=== PATIENT | male | born 1960 | race Caucasian/White ===

== ENCOUNTER 2021-05-02 07:15 | Emergency (ER) | payer BC, MEDICAID ==
--- NOTE | 2021-05-02 07:40 | EDM.PDOC ---
ED HPI GENERAL MEDICAL PROBLEM - General Chief Complaint: General Stated Complaint: WOKE UP DIZZY Time Seen by Provider: 05/02/21 08:05 Source of Information: Reports: Patient, RN. Denies: Old Records History Limitations: Reports: No Limitations - History of Present Illness INITIAL COMMENTS - FREE TEXT/NARRATIVE: 60 yo male is here with his son for a couple of intermittent dizzy spells associated with nausea/vomiting. He seems to get more dizzy with movement. He had a mild spell yesterday, but it is worse today. Feels fine lying on the exam cart at the time of my exam. No diarrhea, melena, or hematochezia. Dr. Pinto is his doctor. Onset: Gradual Onset Date: 05/01/21 Duration: Intermittent Location: Reports: Head Quality: Reports: Other (no pain) Severity: Moderate (at the worst) Improves with: Reports: Immobilization Worsens with: Reports: Movement Context: Reports: Other (See HPI) Associated Symptoms: Reports: Diaphoresis, Nausea/Vomiting. 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: Other (see below) (none) - Related Data Allergies Allergy/AdvReac Type Severity Reaction Status Date / Time Penicillins Allergy Mild Other Verified 05/02/21 07:37 Home Meds: Home Meds Aspirin [Vazalore] 81 mg PO DAILY 05/02/21 [History] Insulin Aspart [NovoLOG] 20 unit SQ WITHMEALSANDBED 05/02/21 [History] Insulin Glarg,Human.Rec.Analog [Lantus Solostar] 100 units SQ DAILY 05/02/21 [History] Liraglutide [Victoza 3-Rick] 18 mg .XX DAILY 05/02/21 [History] Meclizine [Antivert] 25 mg PO Q6H PRN #40 tab.chew 05/02/21 [Rx] Simvastatin 40 mg PO DAILY 05/02/21 [History] lisinopriL [Lisinopril] 10 mg PO DAILY 05/02/21 [History] ED ROS GENERAL - Review of Systems Review Of Systems: See Below Constitutional: Reports: Diaphoresis (intermittent) HEENT: Reports: No Symptoms Respiratory: Reports: No Symptoms Cardiovascular: Reports: No Symptoms GI/Abdominal: Reports: Nausea, Vomiting. Denies: Diarrhea : Reports: No Symptoms Musculoskeletal: Reports: No Symptoms Skin: Reports: Diaphoresis (intermittent) Neurological: Reports: Dizziness, Difficulty Walking (when dizzy). Denies: Confusion, Headache ED EXAM, GENERAL - Physical Exam Exam: See Below Exam Limited By: No Limitations General Appearance: Alert, WD/WN, No Apparent Distress Eye Exam: Bilateral Eye: Conjunctival Injection, Normal Inspection, PERRL Ears: Normal External Exam, Normal Canal, Hearing Grossly Normal, Normal TMs Ear Exam: Bilateral Ear: Auricle Normal, Canal Normal, TM normal Nose: Normal Inspection, No Blood Throat/Mouth: Normal Inspection, Normal Lips, Normal Oropharynx, Normal Voice, No Airway Compromise Head: Atraumatic, Normocephalic Neck: Normal Inspection Respiratory/Chest: No Respiratory Distress, Lungs Clear, Normal Breath Sounds, No Accessory Muscle Use Cardiovascular: Regular Rate, Rhythm, No Edema. No: Tachycardia, Irregularly Irregular GI/Abdominal: Normal Bowel Sounds, Soft, Non-Tender, No Distention, Other (obese). No: Guarding, Rigid, Rebound, Tender Back Exam: Normal Inspection. No: CVA Tenderness (R), CVA Tenderness (L) Extremities: Normal Inspection, Normal Range of Motion, Non-Tender, No Pedal Edema Neurological: Alert, Oriented, CN II-XII Intact, Normal Cognition, No Motor/Sensory Deficits Psychiatric: Normal Affect, Normal Mood Skin Exam: Warm, Dry, Intact, Normal Color, No Rash #1 Interpretation EKG Date: 05/02/21 Time: 07:30 Rhythm: NSR Rate (Beats/Min): 80 Mcgee: Normal P-Wave: Present QRS: RBBB ST-T: Normal QT: Normal Comparison: NA - No Prior EKG Course - Vital Signs Last Recorded V/S: Last Vital Signs Temp 36.1 C 05/02/21 07:38 Pulse 83 05/02/21 07:38 Resp 20 05/02/21 07:38 BP 168/84 H 05/02/21 07:38 Pulse Ox 97 05/02/21 07:38 Orthostatic Blood Pressure [ 159/77 Standing] Orthostatic Blood Pressure [ 159/81 Sitting] Orthostatic Blood Pressure [ 168/84 Supine] - Orders/Labs/Meds Orders: Active Orders 24 hr Category Date Time Status EKG 12 Lead [EK] Routine Ther 05/02/21 07:37 Ordered Meds: Medications Discontinued Medications Generic Name Dose Route Start Last Admin Trade Name Freq PRN Reason Stop Dose Admin Meclizine HCl 25 mg 05/02/21 08:11 05/02/21 08:17 Meclizine 25 Mg Tab PO 05/02/21 08:12 25 mg ONETIME ONE Administration - Re-Assessments/Exams Free Text/Narrative Re-Assessment/Exam: 05/02/21 09:09 Vertigo much better after meclizine. Departure - Departure Time of Disposition: 09:09 Disposition: Home, Self-Care 01 Condition: Good Clinical Impression: BPV (benign positional vertigo) Qualifiers: Laterality: unspecified laterality Qualified Code(s): H81.10 - Benign paroxysmal vertigo, unspecified ear - Discharge Information *PRESCRIPTION DRUG MONITORING PROGRAM REVIEWED*: Not Applicable *COPY OF PRESCRIPTION DRUG MONITORING REPORT IN PATIENT MANA: Not Applicable Prescriptions: Meclizine [Antivert] 25 mg PO Q6H PRN #40 tab.chew PRN Reason: Dizziness Referrals: John Pinto MD [Primary Care Provider] - Forms: ED Department Discharge Additional Instructions: Use Meclizine as directed for vertigo. Recheck as needed. F/U with your provider regarding your BP and your dizziness. Sepsis Event Note (ED) - Focused Exam Vital Signs: Vital Signs Temp Temp Pulse Pulse Resp BP Pulse Ox 05/02/21 07:38 36.1 C 83 20 168/84 H 97 05/02/21 07:37 36.4 C 81 20 169/95 H 97 - My Orders Last 24 Hours: My Active Orders 05/02/21 07:37 EKG 12 Lead [EK] Routine - Assessment/Plan Last 24 Hours: My Active Orders 05/02/21 07:37 EKG 12 Lead [EK] Routine
[2021-05-02] MEDS ORDERED: Meclizine 25 MG Tab PO ONE (08:11)
== END 2021-05-02 09:24 | disposition home or self-care (01) ==
LOC: JP.ED 07:15
DX: H81.10 Benign paroxysmal vertigo, unspecified ear (principal); Z88.0 Allergy status to penicillin; Z79.4 Long term (current) use of insulin; Z79.899 Other long term (current) drug therapy
CPT/HCPCS: 93005; 99284; A9270